=== PATIENT | male | born 1955 | race Caucasian/White ===

== ENCOUNTER 2017-10-30 13:31 | Emergency (ER) | payer MEDICAID ==
[~2017-10-30] VITALS: Ht 167.6 cm; Wt 81.6 kg
[2017-10-30 13:34] VITALS: BP 159/101
[2017-10-30] MEDS ORDERED: KETOROLAC 30 MG/1 ML ONE (13:54)
[2017-10-30] MEDS ORDERED: KETOROLAC 30 MG/1 ML IM ONE (14:00)
== END 2017-10-30 15:04 | disposition home or self-care (01) ==
LOC: ED 14:58
DX: M25.572 Pain in left ankle and joints of left foot (principal); M79.89 Other specified soft tissue disorders
CPT/HCPCS: 36415; 73610; 84550; 96372; 99285; J1885

== ENCOUNTER 2018-01-16 18:49 | Emergency (ER) | payer MEDICAID ==
[~2018-01-16] VITALS: Ht 167.6 cm; Wt 82.5 kg
[2018-01-16 18:51] VITALS: BP 173/87
[2018-01-16] MEDS ORDERED: KETOROLAC 30 MG/1 ML IM/IV ONE (19:30)
[2018-01-16] MEDS ORDERED: KETOROLAC 30 MG/1 ML ONE (19:50)
== END 2018-01-16 20:03 | disposition home or self-care (01) ==
LOC: ED 19:13
DX: M76.891 Other specified enthesopathies of right lower limb, excluding foot (principal)
CPT/HCPCS: 73564; 96372; 99283; J1885

== ENCOUNTER 2018-07-13 14:42 | Emergency (ER) | payer MEDICAID ==
[~2018-07-13] VITALS: Ht 167.6 cm; Wt 82.7 kg
[~2018-07-13 14:42] MED LIST: GOUT
[2018-07-13 15:43] LABS: ALBUMIN 3.8 g/dL (3.4-5.0); ANION GAP 5 mmol/L (5-15); CALCIUM 8.3 mg/dL (8.5-10.1); CHLORIDE 110 mmol/L (98-107)
--- NOTE | 2018-07-13 15:55 | NUR ---
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 STEADY UPON AMBULATION.
--- NOTE | 2018-07-13 16:02 | NUR ---
pt to ed for recheck of abnormal labs. pt palced on monitor, call light within reach
[2018-07-13 17:15] VITALS: BP 134/72
== END 2018-07-13 17:18 | disposition home or self-care (01) ==
LOC: ED 16:05
DX: R68.89 Other general symptoms and signs (principal)
CPT/HCPCS: 36415; 80048; 82040; 82550; 99283